=== PATIENT | female | born 1950 | race Caucasian/White ===

== ENCOUNTER 2022-09-09 11:34 | Outpatient (CLI) | payer MEDICARE, SELFPAY ==
[2022-09-09 12:38] LABS: Chloride* 101 mmol/L (96-114); Sodium* 139 mmol/L (135-149)
[2022-09-09 12:39] LABS: Potassium* 3.5 mmol/L (3.6-5.1)
[2022-09-09 12:41] LABS: Carbon Dioxide* 33 mmol/L (20-32); Cholesterol* 150 mg/dL (90-199); Creatinine* 1.5 mg/dL (0.5-1.5); Estimated Glomerular Filt Rate 37 ml/min
[2022-09-09 12:42] LABS: Blood Urea Nitrogen* 30 mg/dL (7-30); Glucose* 95 mg/dL (60-115); HDL Cholesterol* 76 mg/dL (>=50); LDL Cholesterol Calculated 50 mg/dL (<100); Triglycerides* 119 mg/dL (40-149)
[2022-09-09 12:49] LABS: Vitamin D 25 Hydroxy* 46 ng/mL (30-80)
[2022-09-10 12:05] LABS: Free T4 Free Thyroxine* 1.35 ng/dL (0.70-1.85)
== END 2022-09-09 11:35 | disposition home or self-care (01) ==
PROVIDERS: PCP Internal Medicine; Visit Provider Internal Medicine
DX: M85.80 Other specified disorders of bone density and structure, unspecified site (principal); E03.9 Hypothyroidism, unspecified; I10 Essential (primary) hypertension; E78.5 Hyperlipidemia, unspecified
CPT/HCPCS: 80048; 80061; 82306; 84439; 84443

== ENCOUNTER 2023-02-12 12:39 | Outpatient (CLI) | payer MEDICARE, BC, SELFPAY ==
--- NOTE | 2023-02-12 13:00 | CRLHL7_ITS ---
For Patients: As a result of the Cures Act, medical imaging exams and procedure reports are released immediately into your electronic medical record. You may view this report before your referring provider. If you have questions, please contact your health care provider. DXA BONE MINERAL DENSITY STUDY, 02/12/2023 Reason for exam: osteopenia. History of breast cancer. Current height (inches): 66.0 Weight (lbs.): 197.0 Menopause age: 55 Ethnicity: White 1. Have you had a previous hip or vertebral fracture? No. 2. Have you had any fractures during your adult life which did not result from significant trauma (e.g., auto accident)? No. 3. Did either of your parents have a hip fracture? No. 4. Do you smoke? No. 5. Have you ever taken Glucocorticoids? No. 6. Do you have rheumatoid arthritis? No. 7. Do you have secondary osteoporosis? No. 8. Do you drink 3 or more alcoholic drinks per day? No. 9. Are you being treated for osteoporosis? No. 10. Have you ever taken any of the following medications: Actonel, Evista, Fosamax, Miacalcin, Reclast, Boniva, Forteo, HRT (i.e., estrogen/hormone therapy), Protelos, Prolia, Vitamin D, Calcium, other ??? please specify. ANSWER: Yes; vitamin D, calcium. 11. Do you have any of the following medical conditions: Anorexia or bulimia, asthma or emphysema, end stage renal disease, hyperparathyroidism, any seizure disorders, cancer, inflammatory bowel diseases, hysterectomy, other ??? please specify. ANSWER: Yes; cancer. 12. What was your maximum height (inches)? 66. 13. Do you perform weightbearing exercise regularly? No. 14. Do you regularly consume dairy products? No. 15. Do you drink caffeinated beverages? Yes. 16. At what age did your period start? 14 17. Are you premenopausal? No. 18. How many full-term pregnancies have you had? 3. 19. Have you ever missed your period for more than 6 months in a row (not including or menopause)? No. TECHNIQUE: Bone mineral density study was performed using the [employer]. FINDINGS: The results of the study expressed as bone mineral density (BMD) are as follows: Lumbar Spine L2 to L4: BMD: 0.955 g/cm2. T-score: -1.1. Z-score: 1.2. Neck Left: BMD: 0.667 g/cm2. T-score: -1.6. Z-score: 0.3. Right: BMD: 0.655 g/cm2. T-score: -1.7. Z-score: 0.2. Total Left: BMD: 0.897 g/cm2. T-score: -0.4. Z-score: 1.3. Right: BMD: 0.876 g/cm2. T-score: -0.5. Z-score: 1.1. IMPRESSION: Osteopenia. COMPARISON: Compared with scan of 06/07/2018, the bone mineral density has not changed at the spine and increased by 2.5% at the hip. Compared with scan of 07/20/2014, the bone mineral density has increased by 2.7% at the spine and increased by 6.9% at the hip. *Comparison exams done prior to 04/2020 were performed on different unit, [employer]. FRAX 10-year Fracture Risk Major Osteoporotic Fracture: 11% Hip Fracture: 2.0% Reported Risk Factors: [place] () Neck BMD = 0.655, BMI = 31.8 TORREY FORTE M.D. Diagnostic Radiologist [email or web address] Transcribed: 2:[address]/Dictated by: Torrey Forte MD @ 02/12/2023 1:29:00 PM (Electronically Signed)
--- NOTE | 2023-02-12 13:40 | CRLHL7_ITS ---
For Patients: As a result of the Century Cures Act, medical imaging exams and procedure reports are released immediately into your electronic medical record. You may view this report before your referring provider. If you have questions, please contact your health care provider. BILATERAL SCREENING MAMMOGRAM WITH COMPUTER-AIDED DETECTION AND TOMOSYNTHESIS TECHNIQUE: CC and MLO views were obtained. These mammographic images have been obtained using full-field digital technique. These mammographic images were interpreted with the benefit of computer-aided detection. Breast tomosynthesis was used in this interpretation. COMPARISON FILM: 08/31/20, 06/29/19, 12/29/18 left diagnostic. FINDINGS: There are scattered areas of fibroglandular density. IMPRESSION: There is no radiographic evidence for malignancy. ASSESSMENT: BI-RADS Category 1: Negative RECOMMENDATION: Routine screening mammogram in 1 year. A lay language report of this examination will be provided to the patient. TORREY FORTE M.D. Diagnostic Radiologist [email or web address] HIRO/juan a Transcribed: 02/13/2023, 1:[address]/Dictated by: Torrey Forte MD @ 02/13/2023 8:36:00 AM (Electronically Signed)
== END 2023-02-12 12:40 | disposition home or self-care (01) ==
LOC: RAD 12:39
PROVIDERS: PCP Internal Medicine; Visit Provider Internal Medicine
DX: Z12.31 Encounter for screening mammogram for malignant neoplasm of breast (principal); M85.80 Other specified disorders of bone density and structure, unspecified site; M85.89 Other specified disorders of bone density and structure, multiple sites; Z78.0 Asymptomatic menopausal state; Z85.3 Personal history of malignant neoplasm of breast
CPT/HCPCS: 77063; 77067; 77080

== ENCOUNTER 2023-10-20 11:38 | Outpatient (CLI) | payer MEDICARE, BC, SELFPAY | END 2023-10-20 11:39 | disposition home or self-care (01) | PROVIDERS: PCP Internal Medicine; Visit Provider Internal Medicine | DX: I10 Essential (primary) hypertension (principal); E03.9 Hypothyroidism, unspecified; M10.9 Gout, unspecified; E78.5 Hyperlipidemia, unspecified; Z90.5 Acquired absence of kidney; M85.80 Other specified disorders of bone density and structure, unspecified site | CPT/HCPCS: 80048; 80061; 82043; 82306; 82570; 84443; 84550 ==

== ENCOUNTER 2023-12-30 08:55 | Outpatient (CLI) | payer MEDICARE, BC, SELFPAY ==
--- OUTSIDE RECORDS SUMMARY | 2023-12-30 08:58 | XMS_ITS | Encounter Summary ---
Author Name Unknown Organization [facility] Address [address] [place] [address] Care Team Providers Care Junior Copywriter Name Role Phone Unavailable Primary Care Provider Unavailabl e Reason for Referral * Physical Therapy (Routine) - Authorized Specialty Diagnoses / Procedures Referred By Amyac t Referred To Contact Diagnoses Strain Muscles And Tendons Rotator Cuff Right Shoulder Initial Procedures PT Ongoing treatment [address] [phone] [facility] Region Referral ID Status Reason Start Date Expiration Date V isits Requested Visits Authorized [id number] Authorized 11/11/2023 11/10/2024 99 99 CARRIER Reason for Visit * Appointment Request (Routine) - Closed Specialty Diagnoses / Procedures Referred By Contac t Referred To Contact Physical Therapy Referral ID Status Reason Start Date Expiration Date Visits Re quested Visits Authorized [id number] Closed 11/04/2023 11/03/2024 1 1 Encounter Details Date Type Department Care Team (Latest Contact Info) Description 11/11/2023 8:45 AM COAL CARRIER Comprehensive Visit Department of Rehabilitation Services in [address] [phone] Mark Moon M.D., Ph.D. [address] [place] [phone] Mague Bean P.T. Strain Muscles And Tendons Rotator Cuff Right Shoulder Initial (Primary Dx) Social History Tobacco Use Types Packs/Day Years Used Date Smoking Tobacco: Former Cigarettes 1 40 Q uit: 07/25/2014 Smokeless Tobacco: Never Alcohol Use Standard Drinks/Week Comments Not Currently 0 (1 standard drink = 0.6 oz pur e alcohol) Humiliation, Afraid, Rape, and Kick questionnair e Answer Date Recorded Within the last year, have y ou been afraid of your partner or ex-partner? No 10/01/2022 Within the last year, have y ou been humiliated or emotionally abused in other ways by your partner or ex-partner? No Within the last year, have y ou been kicked, hit, slapped, or otherwise physically hurt by your partner or ex-partner? No 10/01/2022 Within the last year, have y ou been raped or forced to have any kind of sexual activity by your partner or ex-partner? No 10/01/2022 Social Connection and Isolat ion Panel [NHANES] Answer Date Recorded In a typical week, how many times do you talk on the phone with family, friends, or neighbors? More than three times a week 10/01/2022 How often do you get togethe r with friends or relatives? Once a week 10/01/2022 How often do you attend chur or sikhism services? More than 4 times per year 10/01/2022 Do you belong to any clubs o r organizations such as christianity groups, unions, fraternal or athletic groups, or school groups? No 10/01/2022 Attends Club or Organization Meetings Not on kenisha e 10/01/2022 Are you , , di vorced, , never , or living with a partner? 10/01/2022 AUDIT-C Answer Date Recorded Q1: How often do you have a drink containing alc ohol? 2-4 times a month 10/01/2022 Q2: How many drinks containi ng alcohol do you have on a typical day when you are drinking? 1 or 2 10/01/2022 Q3: How often do you have si x or more drinks on one occasion? Less than monthly 10/01/2022 Overall Financial Resource Strain (CARDIA) Answe r Date Recorded How hard is it for you to pa y for the very basics like food, housing, medical care, and heating? Not very hard 10/01/2022 [facility] Occupat ional Health - Occupational Stress Questionnaire Answer Date Recorded Do you feel stress - tense, restless, nervous, or anxious, or unable to sleep at night because your mind is troubled all the time - these days? Rather much 10/01/2022 Exercise Vital Sign Answer Date Recorde d On average, how many days pe r week do you engage in moderate to strenuous exercise (like a brisk walk)? 3 days 10/01/2022 On average, how many minutes do you engage in exercise at this level? 60 min 10/01/2022 Hunger Vital Sign Answer Date Recorded Within the past 12 months, y ou worried that your food would run out before you got the money to buy more. Never true 10/01/20 Within the past 12 months, t he food you bought just didn't last and you didn't have money to get more. Never true 10/01/2022 PRAPARE - Transportation Answer Date Re corded In the past 12 months, has l ack of transportation kept you from medical appointments or from getting medications? No 07/2022 In the past 12 months, has l ack of transportation kept you from meetings, work, or from getting things needed for daily living? No 10/01/2022 Housing Stability Vital Sign Answer Arturo e Recorded In the last 12 months, was t here a time when you were not able to pay the mortgage or rent on time? No 10/01/2022 In the last 12 months, how many places have you lived? 2 10/01/2022 In the last 12 months, was t here a time when you did not have a steady place to sleep or slept in a correction (including now)? No 10/01/2022 Nutrition Answer Date Recorded Nutrition: EVOO Fat Source Yes 10/01 On average, how many serving s of fruits and vegetables do you eat per day (serving size is equal to 1 cup or approximately the size of a tennis ball)? 2-3 10/01/2022 Dental Answer Date Recorded Dental: Regular Dentist Yes 10/01/20 Employment Answer Date Recorded Employment status Retired 10/01/2022 Education Answer Date Recorded What is the highest level of school you have completed or the highest degree you have received? 12th grade 12/03/2020 Sex and Gender Information Value Date Recorded Sex Assigned at Female 08/27/2021 3:22 PM CDT Gender Identity Female 11/27/2020 5:13 PM COAL CARRIER Sexual Orientation Straight 08/27/2021 3: 22 PM CDT documented as of this encounter Consult Notes * Mague Bean P.T. - 11/11/2023 8:45 AM CST Physical Therapy Outpatient Evaluation/Treatment By co-signing this note, the provider certifies the therapy being provided to this patient is reasonable and necessary for the diagnosis or treatment of this patient. PCP: Rosa Yo MD SUBJECTIVE Patient's Name: Gardenia Cisneros Referring Provider: No ref. provider found Visit Diagnosis: 1. 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 OTHER CONVERTED SHX (SEE COMMENT) N/A 01/22/2012 1. Operative hysteroscopy. >2. Polypectomy. TONSILLECTOMY N/A Tonsillectomy Patient presents to outpatient physical therapy for evaluation of symptoms including: Rotator Cuff Tendonitis Overall patient reports status is worsening . History of Present Illness:Patient states she has had a slow onset of irritation to her right shoulder. reports she has been seeing her chiropractor for some rib adjustments and he had given her a few things to do with her right shoulder but it wasn't improving so she had an x-ray and obatined an order from her PCP for right rotator cuff teninitis. Aggravating Factors: lifting and laying on right shoulder Relieving Factors: rest, ice Previous Treatments: Dual Rate Supervisor Prior Function/Occupational Profile: pt is retired Family/Caregiver Present: No Patient goals:Be able to do things around the house without right UE pain. Patient Comments: pt states she has used cold packs and that does seem to reduce her pain somewhat OBJECTIVE REVIEW OF SYSTEMS PHYSICAL EXAM Pain: 5/10 with palpation Orthopedic Physical Examination Shoulder examination Range of motion Right shoulder normal active range of motion, external rotation 0??: with pain noted on active motion Left shoulder normal active range of motion, -- Additional active ROM detail: Slight end range pain right shoulder in ER and IR behind back Strength exam Right Planes of shoulder motion - forward flexion: 4, aBduction: 4, external rotation at 0??: 3, internalrotation at 0??: 4 Left normal strength exam Special shoulder tests Right Positive findings include: crossover aDduction. Right elbow flexion and extension strength: 5/5 Palpation: tenderness noted along lateral rotator cuff tendons and acromio- clavicular joint TREATMENT Treatment today consisted of: Therapeutic Exercise: Codman's swings all directions ER with 0.5 wt x 25 reps IR with band x 25 reps Sidelying shoulder abd x 25 Scap sets daily 20 reps Standing scaption x 30 reps no weight Standing flexion x 30 reps no weight *tactile cues for all above exs with reminders not to shrug shoulders up and lessen UT involvement Home Exercise Program/Education: above routine daily Assessment Clinical Impression: Patient presents to physical therapy with signs and symptoms consistent with rotator cuff tendonitis. Impairments: limited strength and painful end range of motion Functional deficits: limited ability to tolerate ADLs and housework due to pain Rehab Potential: Patient has Good potential to achieve established physical therapy goals within the time frame outlined below, provided active participation in the physical therapy treatment plan and home program. Comorbid Conditions: None Personal Factors: Age Clinical Presentation: Stable Examination elements: 1-2 Clinical Decision Making: Low complexity clinical decision making Functional Goals and Timeframes: PT Outpatient Goals PT Goal #1: Patient will have 5/5 strength in right UE / shoulder without pain. PT Goal #1 Date: 01/21/24 PT Goal #2: Patient will have full right shoulder AROM without end range pain in any motions. PT Goal #2 Date: 01/21/24 PT Goal #3: Patient will be I in [facility] for shoulder RTC strengthening. PT Goal #3 Date: 01/21/24 Plan Patient was educated regarding evaluative findings, diagnosis, prognosis, potential risks and benefits of rehabilitation interventions. A collaborative effort was used to establish goals and plan of care. The patient was informed of the right to make decisions regarding care, including refusal of examination or treatment or selection of services from another provider if desired. The treatment plan may be progressed or modified based upon the patient's response to treatment. Physical Therapy Attestation Statement: Patient agrees with the plan of care and goals. Treatment Plan: Start of Plan of Care: 11/11/2023 PT Next Certification Date: 02/09/24 Number of Visits:8 visits PT Duration: PT Frequency: Treatment interventions may include: Treatment/Interventions: Therapeutic exercise, Therapeutic modalities as needed, Therapeutic functional activity, Neuromuscular re-education, Manual therapy Plan for next session: con't with rotator cuff strengthening within pain tolerance Time Spent with Patient Evaluations PT Eval - Low Complexity: 25 min Therapeutic Interventions Therapeutic Exercise (min): 20 min Time Tracking Total Timed Units (min): 20 min Total Treatment Time (min): 45 min CARRIER documented in this encounter Plan of Treatment Upcoming Encounters Date Type Department Care Team (Late st Contact Info) Description 01/05/2024 12:30 PM COAL CARRIER Clinical Support Department of Rehabilitation Services in [address] [phone] Carlos Enrique Crawford M.D. [address] [place] [phone] Mague Bean P.T. documented as of this encounter Visit Diagnoses Diagnosis Strain Muscles And Tendons Rotator Cuff Right Shoulder Initial- Primary documented in this encounter
--- OUTSIDE RECORDS SUMMARY | 2023-12-30 08:58 | XMS_ITS | Encounter Summary ---
Author Name Unknown Organization [facility] Address [address] [place] [address] Care Team Providers Care Natural Resources Technician Name Role Phone Unavailable Primary Care Provider Unavailabl e Reason for Visit * Physical Therapy (Routine) - Authorized Specialty Diagnoses / Procedures Referred By Iman t Referred To Contact Diagnoses Strain Muscles And Tendons Rotator Cuff Right Shoulder Initial Procedures PT Ongoing treatment [facility] [address] [phone] [facility] Region Referral ID Status Reason Start Date Expiration Date V isits Requested Visits Authorized [id number] Authorized 11/11/2023 11/10/2024 99 99 Encounter Details Date Type Department Care Team (Late st Contact Info) Description 12/14/2023 11:15 AM WIRELESS MANAGER Clinical Support Department of Rehabilitation Services in [address] [phone] Carlos Enrique Crawford M.D. [address] [place] [phone] Mague Bean P.T. Strain Muscles And Tendons Rotator Cuff Right Shoulder Initial Social History Tobacco Use Types Packs/Day Years [...] week 10/01/2022 How often do you attend [facility] or scientologist services? More than 4 times per year 10/01/2022 Do you belong to any clubs o r organizations such as jain groups, unions, fraternal or athletic groups, or [...] care, and heating? Not very hard 10/01/2022 [facility] [place] [facility] Occupat ional Health - Occupational Stress [...] money to buy more. Never true 10/01/20 22 Within the past 12 months, t he [...] place to sleep or slept in a intermediate (including now)? No 10/01/2022 Nutrition Answer Date [...] CDT Gender Identity Female 11/27/2020 5:13 PM WIRELESS MANAGER Sexual Orientation Straight 08/27/2021 3: 22 PM CDT documented as of this encounter Progress Notes * Mague Bean P.T. - 12/14/2023 11:15 AM CST Physical Therapy Outpatient Treatment Note SUBJECTIVE Patient's Name: Garednia Cisneros Referring Provider: No ref. provider found Visit Diagnosis: 1. Strain Muscles And Tendons Rotator Cuff Right Shoulder Initial Payor: MEDICARE / Plan: MEDICARE A AND B / Product Type: Medicare / PT Next Certification Date: 02/09/24 Epic Visit Count: 4 Patient comments: pt states she seemed to have a flare up of her right shoulder with the rotation exercise so she had to take 3 day off from her exercises. Pt reports an overall improvement of 30% since starting PT. OBJECTIVE Pain: 2/10 on average Ortho Exam Posterior RTC tendons continue to be sore TREATMENT Treatment today consisted of: Manual Therapy: pt supine: CFM to right RTC tendons and passive right pec stretch applied Right shoulder joint oscillations and gentle shoulder inferior mobilizations grades I and II for pain reduction Therapeutic Exercise: Fit with Friends upper body ergometer: forwards and backwards 5 min each x 10 min total Codman's swings all directions ER with 1 lb wt x 30 reps Sidelying shoulder abd x 25 Scap sets daily 20 reps Standing scaption x 30 reps -- 1 lb wt Standing flexion x 30 reps -- 1 lb wt IR with orange band x 30 (progress to green at home) Sidelying flexion to 90 degrees x 30 Rotation thoracic on side x 10 each side T-band arms extended rows x 20 reps (blue band) - Right shoulder only due to pain with left T-band rows with arms in mid position x 20 (blue band given) Home Exercise Program/Education: above daily- edu to use cold pack 1-2 times daily Patient reports good HEP compliance. Assessment Clinical Impression: Patient presents to physical therapy with signs and symptoms consistent with rotator cuff tendonitis. Impairments: limited strength and painful end range of motion Functional deficits: limited ability to tolerate ADLs and housework due to pain Functional Goals and Timeframes: PT Goal #1: Patient will have 5/5 strength in right UE / shoulder without pain. PT Goal #1 Date: 01/21/24 PT Goal #2: Patient will have full right shoulder AROM without end range pain in any motions. PT Goal #2 Date: 01/21/24 PT Goal #3: Patient will be I in [facility] for shoulder RTC strengthening. PT Goal #3 Date: 01/21/24 No data recorded Plan Plan for next session: con't with rotator cuff strengthening within pain tolerance and con't manualprn as well *pt has a f/u with her MD in 2 weeks and will inquire about any further treatments she can trail for her shoulder *3 week f/u planned and pt to continue with HEP during that time Time Spent with Patient Therapeutic Interventions Manual Therapy (min): 20 min Therapeutic Exercise (min): 25 min Time Tracking Total Timed Units (min): 45 min Total Treatment Time (min): 45 min LESS MANAGER documented in this encounter Plan of Treatment Upcoming Encounters Date Type Department Care Team (Late st Contact Info) Description 01/05/2024 12:30 PM WIRELESS MANAGER Clinical Support Department of Rehabilitation Services in [address] [phone] Carlos Enrique Crawford M.D. [facility] [place] [phone] Mague Bean P.T. documented as of this encounter Visit Diagnoses Diagnosis Strain Muscles And Tendons Rotator Cuff Right Shoulder Initial documented in this encounter
--- OUTSIDE RECORDS SUMMARY | 2023-12-30 08:58 | XMS_ITS ---
Author Name Unknown Organization [facility] Address [address] [place] [address] Care Team Providers Care Community Health Advocate Name Role Phone Unavailable Unavailable Unavailable Surgery Details Not on file Complications Check Surgery Details section. Procedure Estimated Blood Loss Check Surgery Details section. Procedure Findings Check Surgery Details section. Procedure Specimens Taken Check Surgery Details section.
--- OUTSIDE RECORDS SUMMARY | 2023-12-30 08:58 | XMS_ITS | Clinical Summary ---
Author Name Unknown Organization [facility] Address [address] [place] [address] Care Team Providers Care Divorce Lawyer Name Role Phone Unavailable Primary Care Provider Unavailabl e Source Comments Patient records contain information from all sites at [facility]. For routine questions regarding patient records, call [phone] during business hours, M-F 8:00 AM - 5:00 PM Central Time. Record requests for emergency care only can be directed to [phone] at any time.[facility] Allergies No known active allergies Medications Medication Sig Dispensed Refills Start Date End Date Status atorvastatin (LIPITOR) 20 mg tablet Take 20 mg by mouth at bedtime. 0 10/13/2016 Active clobetasol (TEMOVATE) 0.05 % cream Apply 1 application topically 2 (two) times a week. Sundays and Wednesdays; Topical use as directed; Lichen Sclerosus 0 10/13/2016 Active hydroCHLOROthiazide (HYDRODIURIL) 25 mg tablet Take 25 mg by mouth daily. 0 10/13/2016 Active levothyroxine (SYNTHROID, LEVOTHROID) 125 mcg tablet Take 125 mcg by mouth every morning before breakfast. 0 12/30/2018 Active calcium carbonate-vitamin D3 1,500 mg (600 mg calcium)-400 unit per tablet Take 1 tablet by mouth daily with breakfast. 0 Active cholecalciferol (VITAMIN D3) 2,000 Unit tablet Take 2,000 Units by mouth daily. 0 Active allopurinol (ZYLOPRIM) 150 mg tablet Take 150 mg by mouth daily. 0 Active calcium carbonate (OS-NAM) 1,250 mg (500 mg calcium) tablet Take 500 mg by mouth daily. 0 10/13/2016 Active probenecid-colchicin e (COLBENEMID) 500-0.5 mg per tablet Take 1 tablet by mouth daily. 0 02/21/2023 Active predniSONE (DELTASONE) 10 mg tablet pack Take by mouth as needed. 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 Buchholtz, Marie F, P.T. Strain Muscles And Tendons Rotator Cuff Right Shoulder Initial 12/03/2023 12:30 PM VISUAL DESIGN LEAD Clinical Support Department of Rehabilitation Services in [address] [phone] Carlos Enrique Crawford M.D. Buchholtz, Marie F P.T. Strain Muscles And Tendons Rotator Cuff Right Shoulder Initial 11/24/2023 2:15 PM VISUAL DESIGN LEAD Clinical Support Department of Rehabilitation Services in [address] [phone] Carlos Enrique Crawford M.D. Buchholtz, Marie F P.T. Strain Muscles And Tendons Rotator Cuff Right Shoulder Initial 11/11/2023 8:45 AM VISUAL DESIGN LEAD Comprehensive Visit Department of Rehabilitation Services in [address] [phone] Mark Moon M.D., Ph.D. Mague Bean, P.T. Strain Muscles And Tendons Rotator Cuff Right Shoulder Initial (Primary Dx) from Last 3 Months Immunizations Name Administration Dates Next Due Influenza, Unspecified 09/14/2015 Td (Adult), adsorbed 06/06/2004 Social History Tobacco Use Types Packs/Day Years Used Date Smoking Tobacco: Former Cigarettes 1 40 Q uit: 07/25/2014 Smokeless Tobacco: Never Tobacco Cessation:Counseling Given: Not Answered Alcohol Use Standard Drinks/Week Comments Not Currently [...] How often do you attend chur or religion services? More than 4 times per year 10/01/2022 Do you belong to any clubs o r organizations such as jainism groups, unions, fraternal or athletic groups, or [...] care, and heating? Not very hard 10/01/2022 [facility] [place] of Occupat ional Health - Occupational Stress [...] place to sleep or slept in a penitentiary (including now)? No 10/01/2022 Nutrition Answer Date [...] CDT Gender Identity Female 11/27/2020 5:13 PM VISUAL DESIGN LEAD Sexual Orientation Straight 08/27/2021 3: 22 PM CDT Last Filed Vital Signs Vital Sign Reading Time Taken Comments Blood Pressure 144/80 09/06/2022 12:32 PM CDT Pulse 58 09/06/2022 12:32 PM CDT Temperature 36.1 ??C (97 ??F) 09/06/2022 12:29 PM CDT Respiratory Rate 16 08/16/2020 3:51 PM CDT Oxygen Saturation 98% 08/16/2020 12:00 PM CDT Inhaled Oxygen Concentration - - Weight 92.7 kg (204 lb 5.9 oz) 09/06/2022 12:29 PM CDT Height 167.6 cm (5' 6) 10/20/2022 8:15 PM VISUAL DESIGN LEAD Body Mass Index 32.27 09/06/2022 12:29 PM CDT Plan of Treatment Upcoming Encounters Date Type Department Care Team (Late st Contact Info) Description 01/05/2024 12:30 PM VISUAL DESIGN LEAD Clinical Support Department of Rehabilitation Services in [address] [phone] Carlos Enrique Crawford M.D. [facility] [place] [phone] Mague Bean, P.TBhakti Health Maintenance Due Date Last Done Comments Bone Density Scan (Osteoporo sis Screen) 1950 CT Colonography 1950 Cologuard 1950 Colonoscopy 1950 Colorectal Cancer Screening 1950 FIT 1950 Hepatitis C Screening 1950 Thyroid Stimulating Hormone (TSH) test for thyroid function 1950 Zoster Vaccines (1 of 2) 2000 Mammogram 09/25/2022 09/25/2021, 07/2020, 06/29/2019, Additional history exists Office Visit for Blood Press ure Check / Re-check 12/07/2022 09/06/2022 COVID-19 Vaccine (3 - 2022-2 4 season) 2023 10/01/2021, 09/03/2021 Influenza Vaccine (#1) 2023 , 08/26/2021, 11/08/2019, Additional history exists Depression Screening (Annual PHQ-2) 11/23/2023 Fall Risk Screen (Annual) 11/23/2023 Creatinine Level (Kidney Fun ction Test) 05/04/2024 05/04/2023, 09/22/2022, 08/28/2021, Additional history exists Lung Cancer Screening 05/04/2024 05/04/2023, 022 Potassium Level 05/04/2024 05/04/2023, 08/25, 08/28/2021, Additional history exists Sodium Level 05/04/2024 05/04/2023, 08/25, 08/28/2021, Additional history exists Fasting Glucose for Diabetes Screening 05/04/2026 05/04/2023, 09/22/2022, 08/28/2021, Additional history exists DTaP,Tdap,and Td Vaccines (3 - Td or Tdap) 05/19/2033 05/19/2023, 12/16/2013, 06/06/2004 Pneumococcal vaccine (65+ years) Completed 04/01/20, 03/14/2016 Medical Devices Implanted Type Area Cooler Tender Device Identifier Shelf Expiration Date Model / Serial / Lot Clp Hmol Plmr Lg - [id number] Implanted:Qt y: 1 on 08/14/2020 by Nestor Hand M.D. at [facility] Hardware e.g. pins/screws /rods Right: Abdomen Teleflex [employer] [id number] 09/19/2024 [id number] / / [id number] Advance Directives For more information, please contact: [phone] Latest Code Status on File Code Status Date Activated Date Inactivated Comments Full Code 08/14/2020 6:07 PM 08/16/2020 6:43 PM Question Answer Comments Full Code: Discussed
--- OUTSIDE RECORDS SUMMARY | 2023-12-30 08:58 | XMS_ITS | Encounter Summary ---
Author Name Unknown Organization [facility] Address [address] [place] [address] Care Team Providers Care Resident Manager Name Role Phone Unavailable Primary Care Provider Unavailabl e Encounter Details Date Type Department Care Team (Latest Contact Info) Description 05/04/2023 6:30 AM CDT - 05/04/2023 6:54 AM CDT Hospital Encounter Department of Laboratory Medicine and Pathology, [facility] in [place], [place] [address] [place] [phone] Slava Velazquez M.D. [address] [place] [phone] Carcinoma Renal Cell Right (HCC) Discharge Disposition: Home or Self Care Social History Tobacco Use Types Packs/Day Years [...] week 10/01/2022 How often do you attend [facility] or yazidism services? More than 4 times per year 10/01/2022 Do you belong to any clubs o r organizations such as yarsanism groups, unions, fraternal or athletic groups, or [...] care, and heating? Not very hard 10/01/2022 [facility] of Occupat ional Health - Occupational Stress [...] place to sleep or slept in a chcf (including now)? No 10/01/2022 Nutrition Answer Date [...] CDT Gender Identity Female 11/27/2020 5:13 PM TOBACCO EDUCATOR Sexual Orientation Straight 08/27/2021 3: 22 PM CDT documented as of this encounter Medications at Time of Discharge Medication Sig Dispensed Refills Start Date End Date allopurinol (ZYLOPRIM) 150 mg tablet Take 150 mg by mouth daily. 0 atorvastatin (LIPITOR) 20 mg tablet Take 20 mg by mouth at bedtime. 0 10/13/2016 calcium carbonate (OS-NAM) 1,250 mg (500 mg calcium) tablet Take 500 mg by mouth daily. 0 10/13/2016 calcium carbonate-vitamin D3 1,500 mg (600 mg calcium)-400 unit per tablet Take 1 tablet by mouth daily with breakfast. 0 cholecalciferol (VITAMIN D3) 2,000 Unit tablet Take 2,000 Units by mouth daily. 0 clobetasol (TEMOVATE) 0.05 % cream Apply 1 application topically 2 (two) times a week. Sundays and Wednesdays; Topical use as directed; Lichen Sclerosus 0 10/13/2016 hydroCHLOROthiazide (HYDRODIURIL) 25 mg tablet Take 25 mg by mouth daily. 0 10/13/2016 levothyroxine (SYNTHROID, LEVOTHROID) 125 mcg tablet Take 125 mcg by mouth every morning before breakfast. 0 12/30/2018 predniSONE (DELTASONE) 10 mg tablet pack Take by mouth as needed. 0 12/25/2022 probenecid-colchicine (COLBENEMID) 500-0.5 mg per tablet Take 1 tablet by mouth daily. 0 02/21/2023 documented as of this encounter Plan of Treatment Upcoming Encounters Date Type Department Care Team (Late st Contact Info) Description 01/05/2024 12:30 PM TOBACCO EDUCATOR Clinical Support Department of Rehabilitation Services in [address] [phone] Carlos Enrique Crawford M.D. [address] [place] [phone] Mague Bean P.T. documented as of this encounter Procedures Procedure Name Priority Date/Time Associated Diagnosis Comments CBC WITHOUT DIFFERENTIAL, B Routine 05/04/2023 6:45 AM CDT Carcinoma Renal Cell Right (HCC) BASIC METABOLIC PANEL, S/P Routine 05/04/2023 6:45 AM CDT Carcinoma Renal Cell Right (HCC) documented in this encounter Results * CBC without Differential (05/04/2023 6:45 AM CDT) Hemoglobin 12.8 11.6 - 15.0 g/dL 05/04/2023 7:06 AM CDT DTL Hematocrit 39.2 35.5 - 44.9 % 05/04/2023 7:06 AM CDT DTL Erythrocytes 4.30 3.92 - 5.13 x10(12)/L 05/04/2023 7:06 AM CDT DTL MCV 91.2 78.2 - 97.9 fL 05/04/2023 7:06 AM CDT DTL RBC Distrib Width 14.4 12.2 - 16.1 % 05/04/2023 7:06 AM CDT DTL Platelet Count 218 157 - 371 x10(9)/L 05/04/2023 7:06 AM CDT DTL Leukocytes 4.8 3.4 - 9.6 x10(9)/L 05/04/2023 7:06 AM CDT DTL Blood (Blood, Venous) 05/04/2023 6:45 AM CDT 05/04/2023 7:00 AM CDT Slava Velazquez M.D. LAB BLOOD ADD-ON [facility] [address] [place] [address] * (ABNORMAL) Basic Metabolic Panel (05/04/2023 6:45 AM CDT) Potassium, S 4.5 3.6 - 5.2 mmol/L 05/04/2023 7:31 AM CDT DTL Sodium, S 145 135 - 145 mmol/L 05/04/2023 7:31 AM CDT DTL Chloride, S 103 98 - 107 mmol/L 05/04/2023 7:31 AM CDT DTL Bicarbonate, S 29 22 - 29 mmol/L 05/04/2023 7:31 AM CDT DTL Anion Gap 13 7 - 15 05/04/2023 7:31 AM CDT DTL BUN (Blood Urea Nitrogen), S 27(H) 6 - 21 mg/dL 05/04/2023 7:31 AM CDT DTL Creatinine 1.45(H) 0.59 - 1.04 mg/dL 05/04/2023 7:31 AM CDT DTL Estimated GFR (eGFR) 38(L) >=60 mL/min/BSA 05/04/2023 7:31 AM CDT DTL Comment: Estimated GFR calculated using the 2020 CKD_EPI creatinine equation. Calcium, Total, S 9.9 8.8 - 10.2 mg/dL 05/04/2023 7:31 AM CDT DTL Glucose, S 127 70 - 140 mg/dL 05/04/2023 7:31 AM CDT DTL Blood (Blood, Venous) 05/04/2023 6:45 AM CDT 05/04/2023 7:14 AM CDT Slava Velazquez M.D. LAB BLOOD ADD-ON [facility] [address] [place] [address], [facility] [address] [place] [address] documented in this encounter Visit Diagnoses Diagnosis Carcinoma Renal Cell Right (HCC) documented in this encounter
--- OUTSIDE RECORDS SUMMARY | 2023-12-30 08:58 | XMS_ITS | Encounter Summary ---
Author Name Unknown Organization [facility] Address [address] [place] [address] Care Team Providers Care Outpatient Dietitian Name Role Phone Unavailable Primary Care Provider Unavailabl e Reason for Visit * Physical Therapy (Routine) - Authorized Specialty Diagnoses / Procedures Referred By Iman t Referred To Contact Diagnoses Strain Muscles And Tendons Rotator Cuff Right Shoulder Initial Procedures PT Ongoing treatment [facility] [address] [place] [phone] [facility] Region Referral ID Status Reason Start Date Expiration Date V isits Requested Visits Authorized [id number] Authorized 11/11/2023 11/10/2024 99 [phone] Encounter Details Date Type Department Care Team (Late st Contact Info) Description 11/24/2023 2:15 PM OFFICE SUPERVISOR Clinical Support Department of Rehabilitation Services in [address] [phone] Carlos Enrique Crawford M.D. [address] [place] [phone] Mague Bean P.T. Strain Muscles And Tendons [...] week 10/01/2022 How often do you attend [facility] or mandaeism services? More than 4 times per year 10/01/2022 Do you belong to any clubs o r organizations such as mandaeism groups, unions, fraternal or athletic groups, or [...] care, and heating? Not very hard 10/01/2022 [facility] [place] of Occupat ional Health - Occupational Stress [...] CDT Gender Identity Female 11/27/2020 5:13 PM OFFICE SUPERVISOR Sexual Orientation Straight 08/27/2021 3: 22 PM CDT documented as of this encounter Progress Notes * Mague Bean P.T. - 11/24/2023 2:15 PM CST Physical Therapy Outpatient Treatment Note SUBJECTIVE Patient's Name: Gardenia Cisneros Referring Provider: No ref. provider found Visit Diagnosis: 1. Strain Muscles And Tendons Rotator Cuff Right Shoulder Initial Payor: MEDICARE / Plan: MEDICARE A AND B / Product Type: Medicare / PT Next Certification Date: 02/09/24 Epic Visit Count: 2 Patient comments: pt states the exercises are helping already, states she feels tired from them butno increased soreness. Was able to do some house work with less shoulder soreness already too. Coles reports some burning with the arm swing exs. OBJECTIVE Pain: 2/10 on average Ortho Exam Scar below shoulder from biopsy / removal of skin cancer healed well no scabs however very tender to palpation RTC tendons continue to be sore TREATMENT Treatment today consisted of: Manual Therapy: pt seated: Scar mobilizations to right shoulder scar CFM to right RTC tendons Therapeutic Exercise: Codman's swings all directions ER with 0.5 wt x 30 reps Sidelying shoulder abd x 25 Scap sets daily 20 reps Standing scaption x 30 reps -- added 0.5 wt Standing flexion x 30 reps -- added 0.5 wt NEW HEP: IR with orange band x 30 Sidelying flexion to 90 degrees x 30 Rotation thoracic on side x 10 each side Home Exercise Program/Education: above daily Patient reports good HEP compliance. Assessment [...] pain tolerance and con't manualprn as well Time Spent with Patient Therapeutic Interventions Manual Therapy (min): 10 min Therapeutic Exercise (min): 25 min Time Tracking Total Timed Units (min): 35 min Total Treatment Time (min): 35 min CE SUPERVISOR documented in this encounter Plan of Treatment Upcoming Encounters Date Type Department Care Team (Late st Contact Info) Description 01/05/2024 12:30 PM OFFICE SUPERVISOR Clinical Support Department of Rehabilitation Services in [address] [phone] Carlos Enrique Crawford M.D. [address] [place] [phone] Mague Bean P.T. documented as of this encounter Visit Diagnoses Diagnosis Strain Muscles And Tendons Rotator Cuff Right Shoulder Initial documented in this encounter
--- OUTSIDE RECORDS SUMMARY | 2023-12-30 08:58 | XMS_ITS | Encounter Summary ---
Author Name Unknown Organization [facility] Address [address] [place] [address] Care Team Providers Care Facing Grinder Name Role Phone Unavailable Primary Care Provider Unavailabl e Reason for Visit * Physical Therapy (Routine) - Authorized Specialty Diagnoses / Procedures Referred By Iman t Referred To Contact Diagnoses Strain Muscles And Tendons Rotator Cuff Right Shoulder Initial Procedures PT Ongoing treatment [facility] [address] [place] [phone] [facility] Region Referral ID Status Reason Start Date Expiration Date V isits Requested Visits Authorized [id number] Authorized 11/11/2023 11/10/2024 99 [phone] Encounter Details Date Type Department Care Team (Late st Contact Info) Description 12/03/2023 12:30 PM ELECTORATE OFFICER Clinical Support Department of Rehabilitation Services in [address] [phone] Carlos Enrique Crawford M.D. [address] [place] [phone] Mague Bean P.T. Strain Muscles And Tendons [...] week 10/01/2022 How often do you attend [facility] or mormonism services? More than 4 times per year 10/01/2022 Do you belong to any clubs o r organizations such as bahai groups, unions, fraternal or athletic groups, or [...] care, and heating? Not very hard 10/01/2022 [facility] of Occupat ional Health - Occupational Stress [...] place to sleep or slept in a [facility] (including now)? No 10/01/2022 Nutrition Answer Date [...] CDT Gender Identity Female 11/27/2020 5:13 PM ELECTORATE OFFICER Sexual Orientation Straight 08/27/2021 3: 22 PM CDT documented as of this encounter Progress Notes * Mague Bean P.T. - 12/03/2023 12:30 PM CST Physical Therapy Outpatient Treatment Note SUBJECTIVE Patient's Name: Gardenia Cisneros Referring Provider: No ref. provider found Visit Diagnosis: 1. Strain Muscles And Tendons Rotator Cuff Right Shoulder Initial Payor: MEDICARE / Plan: MEDICARE A AND B / Product Type: Medicare / PT Next Certification Date: 02/09/24 Epic Visit Count: 3 Patient comments: pt states the exercises are [...] tendons and passive right pec stretch applied Therapeutic Exercise: Exanet upper body ergometer: forwards x 6 min Codman's swings all directions ER with 0.5 wt x 30 reps -- increased 1 lb today for progression Sidelying shoulder abd x 25 Scap sets daily 20 reps Standing scaption x 30 reps -- increased to 1 lb wt Standing flexion x 30 reps -- increased to 1 lb wt IR with orange band x 30 Sidelying flexion to 90 degrees x 30 Rotation thoracic on side x 10 each side NEW HEP: T-band arms extended rows x 20 reps - tactile cues to lessen upper trap muscle activation during needed Home Exercise Program/Education: above daily Patient reports [...] with Patient Therapeutic Interventions Manual Therapy (min): 15 min Therapeutic Exercise (min): 30 min Time Tracking Total Timed Units (min): 45 min Total Treatment Time (min): 45 min TORATE OFFICER documented in this encounter Plan of Treatment Upcoming Encounters Date Type Department Care Team (Late st Contact Info) Description 01/05/2024 12:30 PM ELECTORATE OFFICER Clinical Support Department of Rehabilitation Services in [address] [phone] Carlos Enrique Crawford M.D. [address] [place] [phone] Mague Bean P.Lito. documented as of this encounter Visit Diagnoses Diagnosis Strain Muscles And Tendons Rotator Cuff Right Shoulder Initial documented in this encounter
--- OUTSIDE RECORDS SUMMARY | 2023-12-30 08:58 | XMS_ITS | Referral Summary ---
Author Name Unknown Organization [facility] Address [address] [place] [address] Care Team Providers Care Authorization Manager Name Role Phone Unavailable Primary Care Provider Unavailabl e Source Comments Patient records contain information from all sites at [facility]. For routine questions regarding patient records, call [phone] during business hours, M-F 8:00 AM - 5:00 PM Central Time. Record requests for emergency care only can be directed to [phone] at any time.[facility] Encounters Date Type Department Care Team Description 12/14/2023 11:15 AM MARBLE CARVER Clinical Support Department of Rehabilitation Services in [address] [phone] Carlos Enrique Crawford M.D. Buchholtz, Marie F P.T. Strain Muscles And Tendons Rotator Cuff Right Shoulder Initial 12/03/2023 12:30 PM MARBLE CARVER Clinical Support Department of Rehabilitation Services in [address] [phone] Carlos Enrique Crawford M.D. Buchholtz, Marie F P.T. Strain Muscles And Tendons Rotator Cuff Right Shoulder Initial 11/24/2023 2:15 PM MARBLE CARVER Clinical Support Department of Rehabilitation Services in [address] [phone] Carlos Enrique Crawford M.D. Buchholtz, Marie F, P.T. Strain Muscles And Tendons Rotator Cuff Right Shoulder Initial 11/11/2023 8:45 AM MARBLE CARVER Comprehensive Visit Department of Rehabilitation Services in [address] [phone] Mark Moon M.D., Ph.D. Mague Bean P.T. Strain Muscles And Tendons Rotator Cuff Right Shoulder Initial (Primary Dx) from Last 3 Months Allergies No known active allergies Medications Medication [...] Gallstone date unknown Sprain Knee Initial Left Immunizations Name Administration Dates Next Due Influenza, [...] How often do you attend chur or scientologist services? More than 4 times per year 10/01/2022 Do you belong to any clubs o r organizations such as methodist groups, unions, fraternal or athletic groups, or [...] care, and heating? Not very hard 10/01/2022 [facility] [place] of Occupat ional Health - Occupational Stress [...] place to sleep or slept in a senior living (including now)? No 10/01/2022 Nutrition Answer Date [...] CDT Gender Identity Female 11/27/2020 5:13 PM MARBLE CARVER Sexual Orientation Straight 08/27/2021 3: 22 PM [...] 167.6 cm (5' 6) 10/20/2022 8:15 PM MARBLE CARVER Body Mass Index 32.27 09/06/2022 12:29 PM CDT Plan of Treatment Upcoming Encounters Date Type Department Care Team (Late st Contact Info) Description 01/05/2024 12:30 PM MARBLE CARVER Clinical Support Department of Rehabilitation Services in [address] [phone] Carlos Enrique Crawford M.D. [address] [place] [phone] Mague Bean, P.TBhakti Medical Devices Implanted Type Area Minibus Driver Device Identifier Shelf Expiration Date Model / Serial / Lot Clp Hmol Plmr Lg - [id number] Implanted:Qt y: 1 on 08/14/2020 by Nestor Hand M.D. at [facility] Hardware e.g. pins/screws /rods Right: Abdomen TeleGIDEEN [id number] 09/19/2024 [id number] / / [id number] Advance Directives For more information, please contact: [phone] Latest Code Status on File Code Status Date Activated Date Inactivated Comments Full Code 08/14/2020 6:07 PM 08/16/2020 6:43 PM Question Answer Comments Full Code: Discussed
--- OUTSIDE RECORDS SUMMARY | 2023-12-30 08:58 | XMS_ITS | Encounter Summary ---
Author Name Unknown Organization [facility] Address [address] [place] [address] Care Team Providers Care Furniture Dipper Name Role Phone Unavailable Primary Care Provider Unavailabl e Reason for Referral * MRI/CAT/PET Scan (Routine) - Closed Specialty Diagnoses / Procedures Referred By Amyac t Referred To Contact Radiology Diagnoses Carcinoma Renal Cell Right (HCC) Procedures CT Abdomen Pelvis with IV Contrast Slava Velazquez M.D. 200 [place] [address] [facility] Referral ID Status Reason Start Date Expiration Date Visits Re quested Visits Authorized [id number] Closed 10/22/2022 10/22/2023 1 1 Reason for Visit * MRI/CAT/PET Scan (Routine) - Closed Specialty Diagnoses / Procedures Referred By Iman petersen Referred To Contact Radiology Diagnoses Carcinoma Renal Cell Right (HCC) Procedures CT Abdomen Pelvis with IV Contrast Slava Velazquez M.D. 200 [place] [address] [facility] Referral ID Status Reason Start Date Expiration Date Visits Re quested Visits Authorized [id number] Closed 10/22/2022 10/22/2023 1 1 Encounter Details Date Type Department Care Team (Latest Contact Info) Description 05/04/2023 6:55 AM CDT - 05/04/2023 11:59 PM CDT Hospital Encounter Department of Radiology, [facility], in [place], [place] [address] [place] [phone] Slava Velazquez M.D. [address] [place] [address] Carcinoma Renal Cell Right (HCC); Nodules Pulmonary Multiple Discharge Disposition: Home or Self Care Social [...] How often do you attend chur or shinto services? More than 4 times per year 10/01/2022 Do you belong to any clubs o r organizations such as caodaism groups, unions, fraternal or athletic groups, or [...] care, and heating? Not very hard 10/01/2022 [facility] - Occupational Stress Questionnaire Answer Date Recorded [...] place to sleep or slept in a fci (including now)? No 10/01/2022 Nutrition Answer Date [...] CDT Gender Identity Female 11/27/2020 5:13 PM MECHANIC RECOVERY Sexual Orientation Straight 08/27/2021 3: 22 PM [...] st Contact Info) Description 01/05/2024 12:30 PM MECHANIC RECOVERY Clinical Support Department of Rehabilitation Services in [place] [place] [phone] Carlos Enrique [place] M.D. [address] [place] [phone] Mague Bean P.T. documented as of this encounter Procedures Procedure Name Priority Date/Time Associated Diagnosis Comments CT ABDOMEN PELVIS WITH IV CONTRAST RAD - Routine (most inpatients and all outpatients) 05/04/2023 8:43 AM CDT Carcinoma Renal Cell Right (HCC) CT CHEST WITH IV CONTRAST RAD - Routine (most inpatients and all outpatients) 05/04/2023 8:43 AM CDT Carcinoma Renal Cell Right (HCC) Nodules Pulmonary Multiple documented in this encounter Results * CT Chest with IV Contrast (05/04/2023 8:43 AM CDT) Anatomical Region Laterality Modality Chest, Thoracic RST LOS, Tho racic ARZ LOS, Thoracic ARZ LOS, Thoracic FLA LOS N/A Computed Tomography, Compute d Tomography 05/04/2023 8:40 AM CDT Impressions 05/04/2023 9:54 AM CDT No metastatic disease evident in the chest. Tiny solid nodules and groundglass opacity in the right lower lobe that were new on 10/03/2022 have all resolved and should've been infectious/inflammatory in nature. Narrative 05/04/2023 9:54 AM CDT EXAM: CT CHEST WITH IV CONTRAST COMPARISON: Exams dating back to 06/27/2019 FINDINGS: Since 10/03/2022 the tiny sub-3 mm solid nodules in the posterior right lower lobe and adjacent loosely clustered groundglass opacity have all resolved and should've been infectious/inflammatory in nature. No new or enlarging nodules in either lung. Stable solid noncalcified pulmonary nodules dating back to 06/27/2019 should all be benign. Bilateral calcified pulmonary granulomas. Emphysematous changes in the lungs. Minimal atelectasis or scarring in the lung bases. No focal pulmonary infiltrates or pleural effusions. No adenopathy in the chest. Mild aortic and coronary artery calcification. No worrisome osseous lesions. Minimal degenerative changes lower thoracic spine. This examination was performed in conjunction with a CT of the abdomen, which will be reported separately. Procedure Note Marty Almonte M.D. - 05/04/2023 EXAM: CT CHEST WITH IV CONTRAST COMPARISON: Exams dating back to 06/27/2019 FINDINGS: Since 10/03/2022 the tiny sub-3 mm solid nodules in the posterior rightlower lobe and adjacent loosely clustered groundglass opacity have all resolved and should've beeninfectious/inflammatory in nature. No new or enlarging nodules in either lung. Stable solid noncalcified pulmonary nodules dating back to 06/27/2019should all be benign. Bilateral calcified pulmonary granulomas. Emphysematous changes in the lungs. Minimal atelectasis or scarring in thelung bases. No focal pulmonary infiltrates or pleural effusions. No adenopathy in the chest. Mild aortic and coronary arterycalcification. No worrisome osseous lesions. Minimal degenerative changes lower thoracicspine. This examination was performed in conjunction with a CT of the abdomen,which will be reported separately. IMPRESSION: No metastatic disease evident in the chest. Tiny solid nodules andgroundglass opacity in the right lower lobe that were new on 10/03/2022 have all resolved andshould've been infectious/inflammatory in nature. Slava Velazquez M.D. [facility] CT PROCEDURES * CT Abdomen Pelvis with IV Contrast (05/04/2023 8:43 AM CDT) Anatomical Region Laterality Modality Abdomen, Pelvis, Abdominal R ST LOS, Abdominal ARZ LOS, Abdominal FLA LOS N/A Computed Tomograp hy, Computed Tomography 05/04/2023 8:39 AM CDT Impressions 05/04/2023 9:54 AM CDT 1. Status post right nephrectomy without local recurrence or metastatic disease within abdomen pelvis. 2. Stable previously seen right hepatic dome enhancing lesion, likely perfusional. Attention on follow-up imaging. Narrative 05/04/2023 9:54 AM CDT EXAM: ??CT ABDOMEN PELVIS WITH IV CONTRAST COMPARISON: ??Prior CT 09/22/2022 and prior MRI 10/20/2022 FINDINGS: findings: Right nephrectomy without local recurrence. Stable left renal hypodense lesions likely tiny cysts. The bladder is distended and within normal limits. Other findings: Normal size and morphology of liver with stable subcentimeter arterially enhancing lesion without washout right hepatic dome, likely perfusional. Cholelithiasis. Spleen, pancreas, adrenal glands are within normal limits. Layering cholelithiasis. No significant adenopathy within abdomen pelvis. No ascites. Colonic diverticulosis. Normal caliber abdominal aorta with dense scattered atherosclerotic calcification. Mild degenerative changes thoracolumbar vertebrae without destructive lesions. Lung bases clear. Procedure Note Rickie Pagan M.B.B.S., M.D. - 05/04/2023 EXAM: CT ABDOMEN PELVIS WITH IV CONTRAST COMPARISON: Prior CT 09/22/2022 and prior MRI 10/20/2022 FINDINGS: findings: Right nephrectomy without local recurrence. Stableleft renal hypodense lesions likely tiny cysts. The bladder is distended and within normallimits. Other findings: Normal size and morphology of liver with stablesubcentimeter arterially enhancing lesion without washout right hepatic dome, likely perfusional.Cholelithiasis. Spleen, pancreas, adrenal glands are within normal limits. Layeringcholelithiasis. No significant adenopathy within abdomen pelvis. No ascites. Colonic diverticulosis.Normal caliber abdominal aorta with dense scattered atherosclerotic calcification. Mild degenerativechanges thoracolumbar vertebrae without destructive lesions. Lung bases clear. IMPRESSION: 1. Status post right nephrectomy without local recurrence or metastaticdisease within abdomen pelvis. 2. Stable previously seen right hepatic dome enhancing lesion, likelyperfusional. Attention on follow-up imaging. Slava PEREZ CT PROCEDURES documented in this encounter Visit Diagnoses Diagnosis Carcinoma Renal Cell Right (HCC) Nodules Pulmonary Multiple documented in this encounter Administered Medications Inactive Administered Medications - up to 3 most recent administrations Medication Order MAR Action Action Date Dose Rate Site iohexoL 300 mg iodine/mL solution 1-200 mL (OMNIPAQUE) 1-200 mL, intravenous, Once in imaging, contrast, Starting on 05/04/23 at 0746, For 1 dose, Imaging Protocol Orders, Dose per Radiant Medication Guidelines Given 05/04/2023 8:28 AM CDT 140 mL sodium chloride (PF) 0.9 % injection 1-100 mL 1-100 mL, intravenous, Once, On Thu05/04/23 at 0815, For 1 dose, Imaging Protocol Orders Given 05/04/2023 8:28 AM CDT 50 mL documented in this encounter
--- OUTSIDE RECORDS SUMMARY | 2023-12-30 08:58 | XMS_ITS | Encounter Summary ---
Author Name Unknown Organization [facility] Address [address] [place] [address] Care Team Providers Care Cad Cam Programmer Name Role Phone Unavailable Primary Care Provider Unavailabl e Encounter Details Date Type Department Care Team (Latest Contact Info) Description 05/04/2023 6:30 AM CDT - 05/04/2023 6:54 AM CDT Hospital Encounter Department of Laboratory Medicine and Pathology, [facility] in [place], [place] [address] [place] [address] Slava Velazquez M.D. [address] [place] [phone] Carcinoma Renal Cell Right (HCC) Discharge Disposition: [...] week 10/01/2022 How often do you attend [facility] or taoist services? More than 4 times per year 10/01/2022 Do you belong to any clubs o r organizations such as synagogue groups, unions, fraternal or athletic groups, or [...] care, and heating? Not very hard 10/01/2022 [facility] - Occupational [...] CDT Gender Identity Female 11/27/2020 5:13 PM TECHNICAL FELLOW Sexual Orientation Straight 08/27/2021 3: 22 PM [...] st Contact Info) Description 01/05/2024 12:30 PM TECHNICAL FELLOW Clinical Support Department of Rehabilitation Services in [address] [phone] Carlos Enrique [place] M.D. [address] [place] [phone] Mague Bean P.T. documented as of this encounter Procedures Procedure Name Priority Date/Time Associated Diagnosis Comments DIPSTICK, U Routine 05/04/2023 7:19 AM CDT MICROSCOPIC AUTOMATED Routine 05/04/2023 7:19 AM CDT PH, U Routine 05/04/2023 7:19 AM CDT OSMOLALITY, U Routine 05/04/2023 7:19 AM CDT URINALYSIS WITH MICROSCOPIC Routine 05/04/2023 7:19 AM CDT Carcinoma Renal Cell Right (HCC) documented in this encounter Results * Dipstick, Urine (05/04/2023 7:19 AM CDT) Hemoglobin, QL, U Negative Negative 05/04/2023 8:04 AM CDT DTL Leukocyte Esterase, U Negative Negative 05/04/2023 8:04 AM CDT DTL Nitrite, U Negative Negative 05/04/2023 8:04 AM CDT DTL Ketone, U Negative Negative mg/dL 05/04/2023 8:04 AM CDT DTL Glucose, U Negative Negative mg/dL 05/04/2023 8:04 AM CDT DTL Urine 05/04/2023 7:19 AM CDT 05/04/2023 7:19 AM CDT Slava Velazquez M.D. LAB URINE ORDERABLES Performing Organization Address City/[facility]/ZIP Co de Phone Number [facility] [address] [facility] [facility] [address] [facility] 200 [place] [address] * pH, Urine (05/04/2023 7:19 AM CDT) pH, U 6.6 4.5 - 8.0 05/04/2023 8:5 2 AM CDT DT Urine 05/04/2023 7:19 AM CDT 05/04/2023 7:19 AM CDT Narrative Authorizing Provider Result Micky Velazquez M.D. LAB URINE ORDERABLES Performing Organization Address City/[facility]/ZIP Co de Phone Number [facility] [address] [place], [place] [address] [place] [address] 200 [place] [address] * Osmolality, Urine (05/04/2023 7:19 AM CDT) Osmolality, U 369 150 - 1150 mOsm/kg 05/04/2023 8:52 AM CDT DTL Urine 05/04/2023 7:19 AM CDT 05/04/2023 7:19 AM CDT Narrative Authorizing Provider Result Micky Velazquez M.D. LAB URINE ORDERABLES Performing Organization Address City/[facility]/ZIP Co de Phone Number [facility] 200 [place] [address], [facility] 200 [place] [address] * Microscopic Automated (05/04/2023 7:19 AM CDT) Microscopy Normal 05/04/2023 8:0 4 AM CDT DTL Urine 05/04/2023 7:19 AM CDT 05/04/2023 7:19 AM CDT Narrative Authorizing Provider Result Micky Velazquez M.D. LAB URINE ORDERABLES Performing Organization Address [facility] Co de Phone Number [facility] [address] [place] [address], [facility] 200 [place] [address] * Urinalysis with Microscopic: Urine, Midstream (05/04/2023 7:19 AM CDT) Source Urine, Urine, Midstream 05/04/2023 7:19 AM CDT DTL Color, U Yellow 05/04/2023 7:19 AM CDT DTL Clarity, U Clear 05/04/2023 7:19 AM CDT DTL Protein, U 6 <26 mg/dL 05/04/2023 8:00 AM CDT DTL Protein/Osmol ality 0.16 <0.42 ratio 05/04/2023 8:52 AM CDT DTL Predicted 24 HR Protein, U 129 <229 mg/24 h 05/04/2023 8:52 AM CDT DTL Predicted Range 32-520 mg/24 h 05/04/2023 8:52 AM CDT DTL Urine (Urine, Midstream) 05/04/2023 7:19 AM CDT 05/04/2023 7:19 AM CDT Narrative Authorizing Provider Result Micky Velazquez M.D. LAB URINE ORDERABLES Performing Organization Address City/[facility]/ZIP Co de Phone Number [facility] [address] [place] [address], [facility] DTL [facility] [address] [place] [address] documented in this encounter Visit Diagnoses Diagnosis Carcinoma Renal Cell Right (HCC) documented in this encounter
--- OUTSIDE RECORDS SUMMARY | 2023-12-30 08:59 | XMS_ITS | Encounter Summary ---
Author Name Unknown Organization [facility] Address [address] [place] [address] Care Team Providers Care Bat Carrier Name Role Phone Unavailable Primary Care Provider Unavailabl e Encounter Details Date Type Department Care Team (Late st Contact Info) Description 01/26/2023 [facility] [address] [place] [phone] Rosa Yo M.D. [address] [place] [phone] Social History Tobacco Use Types Packs/Day Years [...] How often do you attend chur or sabianist services? More than 4 times per year 10/01/2022 Do you belong to any clubs o r organizations such as taoism groups, unions, fraternal or athletic groups, or [...] care, and heating? Not very hard 10/01/2022 [facility] - Occupational Stress [...] place to sleep or slept in a skilled nursing (including now)? No 10/01/2022 Nutrition Answer Date [...] CDT Gender Identity Female 11/27/2020 5:13 PM MOTHER SUPERIOR Sexual Orientation Straight 08/27/2021 3: 22 PM CDT documented as of this encounter Plan of Treatment Upcoming Encounters Date Type Department Care Team (Late st Contact Info) Description 01/05/2024 12:30 PM MOTHER SUPERIOR Clinical Support Department of Rehabilitation Services in [address] [phone] Carlos Enrique [place] M.D. [facility] [place] [phone] Mague Bean, P.T. documented as of this encounter Visit Diagnoses Not on filedocumented in this encounter
--- OUTSIDE RECORDS SUMMARY | 2023-12-30 08:59 | XMS_ITS | Encounter Summary ---
Author Name Unknown Organization [facility] Address [address] [place] [address] Care Team Providers Care Coordinate Measuring Equipment Operator Name Role Phone Unavailable Primary Care Provider Unavailabl e Reason for Visit * Reason Onset Date Comments Previsit Intake 05/01/2023 Encounter Details Date Type Department Care Team (Latest Contact Info) Description 05/01/2023 9:15 AM CDT Clinical Communication Virtual Review in [place], [place] [address] [place] [address] Previsit Intake Social History Tobacco Use Types Packs/Day Years [...] How often do you attend chur or taoism services? More than 4 times per year 10/01/2022 Do you belong to any clubs o r organizations such as nondenominational groups, unions, fraternal or athletic groups, or [...] care, and heating? Not very hard 10/01/2022 [facility]at ional [facility] - Occupational Stress [...] CDT Gender Identity Female 11/27/2020 5:13 PM MECHANICAL ESTIMATOR Sexual Orientation Straight 08/27/2021 3: 22 PM CDT documented as of this encounter Plan of Treatment Upcoming Encounters Date Type Department Care Team (Late st Contact Info) Description 01/05/2024 12:30 PM MECHANICAL ESTIMATOR Clinical Support Department of Rehabilitation Services in [address] [phone] Carlos Enrique [place] M.D. [address] [place] [phone] Mague Bean P.TBhakti documented as of this encounter Visit Diagnoses Not on filedocumented in this encounter
--- OUTSIDE RECORDS SUMMARY | 2023-12-30 08:59 | XMS_ITS | Encounter Summary ---
Author Name Unknown Organization [facility] Address [address] [place] [address] Care Team Providers Care Tripe Scraper Name Role Phone Unavailable Primary Care Provider Unavailabl e Encounter Details Date Type Department Care Team (Late st Contact Info) Description 01/19/2023 [facility] [address] [place] [phone] Rosa Yo M.D. [address] [place] [phone] Gout (Primary Dx) Social History Tobacco Use Types [...] How often do you attend chur or adventism services? More than 4 times per year 10/01/2022 Do you belong to any clubs o r organizations such as restorationist groups, unions, fraternal or athletic groups, or [...] care, and heating? Not very hard 10/01/2022 [facility] of Occupat ional Health - Occupational [...] to sleep or slept in a senior care (including now)? No 10/01/2022 Nutrition Answer Date [...] CDT Gender Identity Female 11/27/2020 5:13 PM MANAGER CHANGE Sexual Orientation Straight 08/27/2021 3: 22 PM CDT documented as of this encounter Plan of Treatment Upcoming Encounters Date Type Department Care Team (Late st Contact Info) Description 01/05/2024 12:30 PM MANAGER CHANGE Clinical Support Department of Rehabilitation Services in [address] [phone] Carlos Enrique [place] M.D. [facility] [place] [place] [phone] Mague Bean, P.T. documented as of this encounter Visit Diagnoses Diagnosis Gout- Primary documented in this encounter
--- OUTSIDE RECORDS SUMMARY | 2023-12-30 08:59 | XMS_ITS | Encounter Summary ---
Author Name Unknown Organization [facility] Address [address] [place] [address] Care Team Providers Care Spindle Sander Name Role Phone Unavailable Primary Care Provider Unavailabl e Reason for Referral * MRI/CAT/PET Scan (Routine) - Authorized Specialty Diagnoses / Procedures Referred By Contac t Referred To Contact Radiology Diagnoses Carcinoma Renal Cell Right (HCC) Procedures CT Abdomen Pelvis with IV Contrast Chris Thomas M.D. [address] [place] [address] [facility] Referral ID Status Reason Start Date Expiration Date V isits Requested Visits Authorized [id number] Authorized 05/04/2023 05/03/2024 1 1 * MRI/CAT/PET Scan (Routine) - Authorized Specialty Diagnoses / Procedures Referred By Contac t Referred To Contact Radiology Diagnoses Carcinoma Renal Cell Right (HCC) Procedures CT Chest with IV Contrast Chris Thomas M.D. [address] [place] [address] [facility] Referral ID Status Reason Start Date Expiration Date V isits Requested Visits Authorized [id number] Authorized 05/04/2023 05/03/2024 1 1 * Outpatient (Routine) - Authorized Specialty Diagnoses / Procedures Referred By Contac t Referred To Contact Urology Diagnoses Carcinoma Renal Cell Right (HCC) Chris Thomas M.D. [address] [place] [phone] [facility] Referral ID Status Reason Start Date Expiration Date V isits Requested Visits Authorized [id number] Authorized 05/04/2023 05/03/2026 1 1 Reason for Visit * Outpatient (Routine) - Closed Specialty Diagnoses / Procedures Referred By Iman petersen Referred To Contact Urology Diagnoses Carcinoma Renal Cell Right (HCC) Slava Velazquez M.D. [address] [place] [phone] [facility] Referral ID Status Reason Start Date Expiration Date Visits Re quested Visits Authorized [id number] Closed 10/22/2022 10/21/2025 1 1 Encounter Details Date Type Department Care Team (Late st Contact Info) Description 05/04/2023 1:00 PM CDT Office Visit Department of Urology in [place], [place] [address] [place] [phone] Nestor Hand M.D. [address] [place] [phone] Carcinoma Renal Cell Right (HCC) (Primary Dx) Social History Tobacco Use Types [...] How often do you attend chur or jain services? More than 4 times per year 10/01/2022 Do you belong to any clubs o r organizations such as buddhism groups, unions, fraternal or athletic groups, or [...] care, and heating? Not very hard 10/01/2022 [facility] Occupat ional Health - [...] place to sleep or slept in a assisted (including now)? No 10/01/2022 Nutrition Answer Date [...] CDT Gender Identity Female 11/27/2020 5:13 PM HOUSECALLS NURSE Sexual Orientation Straight 08/27/2021 3: 22 PM CDT documented as of this encounter Consult Notes * Chris Thomas M.D. - 05/04/2023 1:00 PM CDT FOLLOW-UP NOTE CHIEF COMPLAINT: Kidney cancer surveillance SUBJECTIVE INTERVAL HISTORY: Mrs. 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 Her last surveillance evaluation was on 10/06/2022. Please refer to that note for additional details. She was evaluated today with a CT scan of the abdomen and pelvis was was negative for any carolin or metastatic disease. Her CT chest showed resolution of previous subcentimeter nodules. She otherwise denies any major intercurrent changes in her health status. She was recently diagnosed with gout which is being treated medically. SYSTEMS REVIEW All other systems reviewed and are negative. OBJECTIVE PHYSICAL EXAMINATION Constitutional: She is oriented to person, place, and time. She appears well- developed and well-nourished. No distress. Pulmonary/Chest: Effort normal. Neurological: She is alert and oriented to person, place, and time. Psychiatric: She has a normal mood and affect. LABS Creatinine 1.45 ASSESSMENT / PLAN #1 Carcinoma Renal Cell Right (HCC) It was a pleasure to meet with Mrs. Cisneros this afternoon. Her surveillance evaluation is negative. PLAN 1. Patient will follow up in Urology in 1 year with a repeat CT of the abdomen pelvis with and without contrast, chest x-ray, BMP, and office visit. Signed: Chris Thomas M.D. documented in this encounter Plan of Treatment Upcoming Encounters Date Type Department Care Team (Late st Contact Info) Description 01/05/2024 12:30 PM HOUSECALLS NURSE Clinical Support Department of Rehabilitation Services in [address] [phone] Carlos Enrique [place] M.D. [address] [place] [phone] Mague Bean P.T. Scheduled Orders Name Type Priority Associated Diagnoses Order Schedule CT Chest with IV Contrast Imaging RAD - Routine (most inpatients and all outpatients) Carcinoma Renal Cell Right (HCC) Expected: 05/04/2024, Expires: 08/04/2024 CT Abdomen Pelvis with IV Contrast Imaging RAD - Routine (most inpatients and all outpatients) Carcinoma Renal Cell Right (HCC) Expected: 05/04/2024, Expires: 08/04/2024 Comprehensive Metabolic Panel Lab Routine Carcinoma Renal Cell Right (HCC) Expected: 05/04/2024, Expires: 08/04/2024 Urinalysis with Microscopic: Urine, Midstream Lab Routine Carcinoma Renal Cell Right (HCC) Expected: 05/04/2024, Expires: 08/04/2024 Scheduled Referrals Name Type Priority Associated Diagnoses Orde r Schedule Urology office visit (clinic) Outpatient Referral Routine Carcinoma Renal Cell Right (HCC) Expected: 05/04/2024, Expires: 08/04/2024 documented as of this encounter Visit Diagnoses Diagnosis Carcinoma Renal Cell Right (HCC)- Primary documented in this encounter
--- OUTSIDE RECORDS SUMMARY | 2023-12-30 08:59 | XMS_ITS | Encounter Summary ---
Author Name Unknown Organization [facility] Address [address] [place] [id number] Care Team Providers Care Workers Compensation Examiner Name Role Phone Unavailable Primary Care Provider Unavailabl e Encounter Details Date Type Department Care Team (Late st Contact Info) Description 01/20/2023 Orders Only Division of Rheumatology in [place], [place] [address] [place] [phone] Melina Centeno M.B.B.S. [address] [place] [phone] Gout (Primary Dx) Social History Tobacco Use [...] How often do you attend chur or gnosticism services? More than 4 times per year 10/01/2022 Do you belong to any clubs o r organizations such as zoroastrianism groups, unions, fraternal or athletic groups, or [...] care, and heating? Not very hard 10/01/2022 [facility] - Occupational [...] place to sleep or slept in a [place] [facility] [place] (including now)? No 10/01/2022 Nutrition Answer Date [...] CDT Gender Identity Female 11/27/2020 5:13 PM HUNTER Sexual Orientation Straight 08/27/2021 3: 22 PM CDT documented as of this encounter Plan of Treatment Upcoming Encounters Date Type Department Care Team (Late st Contact Info) Description 01/05/2024 12:30 PM HUNTER Clinical Support Department of Rehabilitation Services in [address] [phone] Carlos Enrique Crawford M.D. [facility] [place] [phone] Mague eBan, P.T. documented as of this encounter Visit Diagnoses Diagnosis Gout- Primary documented in this encounter
--- OUTSIDE RECORDS SUMMARY | 2023-12-30 08:59 | XMS_ITS | Clinical Summary ---
Author Name Unknown Organization [facility] Address [place], [place] [address] Care Team Providers Care Insurance Adjuster Name Role Phone Pcp, No Primary Care Provider Unavailabl e Allergies No known active allergies Medications Medication Sig Dispensed Refills Start Date End Date Status atorvastatin (LIPITOR) 20 mg tablet Take 1 tablet by mouth once daily. At bedtime 0 10/13/2016 Active clobetasol cream 0.05% (TEMOVATE) 0.05 % cream Apply topically to affected area(s) 2 times daily. External bedtime 0 10/13/2016 Active hydroCHLOROthiazide (HCTZ) 25 mg tablet Take 1 tablet by mouth once daily. 0 10/13/2016 Active calcium carbonate (OS-NAM 500) 500 mg calcium (1,250 mg) tablet Take 1 tablet by mouth 3 times daily with meals. 0 10/13/2016 Active cholecalciferol, Vitamin D3, 2,000 unit tablet Take 2,000 units by mouth once daily. 0 Active levothyroxine (SYNTHROID) 125 mcg tablet Take 1 Tablet by mouth once daily. 0 03/03/2023 Active Immunizations Name Administration Dates Next Due Influenza, High-dose Inactivated 10/13/2016 Social History Tobacco Use Types Packs/Day Years Used Date Smoking Tobacco: Former Tobacco Cessation:Counseling Given: Yes Alcohol Use Standard Drinks/Week Comments No 0 (1 standard drink = 0.6 oz pur e alcohol) Sex and Gender Information Value Date Recorded Sex Assigned at Not on file Gender Identity Not on file Sexual Orientation Not on file Obstetrics History Last Filed Vital Signs Vital Sign Reading Time Taken Comments Blood Pressure 133/76 03/11/2023 12:59 PM CDT to wer Pulse 55 03/11/2023 12:59 PM CDT Temperature 36.7 ??C (98.1 ??F) 10/13/2016 3:02 PM CS T Respiratory Rate - - Oxygen Saturation 100% 03/11/2023 12:59 PM CDT Inhaled Oxygen Concentration - - Weight 93 kg (205 lb) 03/11/2023 12:59 PM CDT Height 168.5 cm (5' 6.34) 10/13/2016 3:02 PM CS T Body Mass Index 32.75 10/13/2016 3:02 PM 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 Plan of Treatment Health Maintenance Due Date Last Done Comments Tdap 1961 Depression screening for age 12+ 1962 Hepatitis C screening for age 18-79 1968 Tetanus booster 1970 Colonoscopy through age 75 1995 Lipids for age 45-75 1995 Mammogram for age 45-75 1995 Zoster (shingles) series for age 50+ (1 of 2) 2000 DEXA/DXA scan for age 65+ 2015 Medicare Wellness for age 65+ 2015 Pneumococcal series for age 65+ (1 of 1 - PCV) 2015 BMI (ht and wt on same day) for age 18+ 10/13/2017 1 12/13/2015 COVID-19 vaccine series ( season) 2023 10/01/2021, 09/03/2021 Influenza for age 65+ 07/24/2023 10/13/2016 Care Teams Insurance Adjuster Relationship Specialty Start Date End Date Pcp, No . PCP - General 10/13/16
--- NOTE | 2023-12-30 09:45 | CRLHL7_ITS ---
For Patients: As a result of the Century Cures Act, medical imaging exams and procedure reports are released immediately into your electronic medical record. You may view this report before your referring provider. If you have questions, please contact your health care provider. DIGITAL DIAGNOSTIC BILATERAL MAMMOGRAM USING TOMOSYNTHESIS AND COMPUTER-AIDED DETECTION RIGHT BREAST ULTRASOUND CLINICAL HISTORY: RIGHT breast lump. COMPARISON: 02/12/2023, 08/31/2020, 06/29/2019, 12/29/2018. TECHNIQUE: Digital BILATERAL mammogram in four projections. Tomosynthesis and CAD utilized. Real-time ultrasound imaging of RIGHT breast with imaging documentation. BREAST COMPOSITION: There are areas of scattered fibroglandular density. FINDINGS: 3D CC/MLO BILATERAL mammogram images submitted. No suspicious masses or architectural distortion. No suspicious calcifications. Benign stable density LEFT retroareolar plane. Targeted RIGHT breast ultrasound performed in the area of palpable concern. At 12 o`clock 6 cm from the nipple there is mild subcutaneous bruising. No underlying mass. No fluid collection. IMPRESSION: No suspicious findings. No evidence of malignancy. RECOMMENDATIONS: Annual BILATERAL screening mammography. Results and recommendations were discussed with the patient at the time of the exam. A lay language report of this examination will be provided to the patient. Dictated by Torrey Kendrick MD @ 12/30/2023 10:16:53 AM /Dictated by: Torrey Kendrick MD @ 12/30/2023 10:16:00 AM (Electronically Signed)
--- NOTE | 2023-12-30 10:15 | CRLHL7_ITS ---
For Patients: As a result of the Cures Act, medical imaging exams and procedure reports are released immediately into your electronic medical record. You may view this report before your referring provider. If you have questions, please contact your health care provider. PLEASE SEE DIGITAL DIAGNOSTIC BILATERAL MAMMOGRAM PERFORMED SAME DAY CRL:yelena kirk/Dictated by: Torrey Kendrick MD @ 12/30/2023 10:46:00 AM (Electronically Signed)
== END 2023-12-30 08:56 | disposition home or self-care (01) ==
LOC: MAMMO 08:56
PROVIDERS: PCP Internal Medicine; Visit Provider Internal Medicine
DX: N63.10 Unspecified lump in the right breast, unspecified quadrant (principal); N64.59 Other signs and symptoms in breast; N63.15 Unspecified lump in the right breast, overlapping quadrants
CPT/HCPCS: 76642; 77066; G0279

== ENCOUNTER 2024-06-21 09:45 | Outpatient (RCR) | payer MEDICARE, BC, SELFPAY ==
--- NOTE | 2024-02-10 13:56 | PT.OPEX ---
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 Yo Subjective Subjective Patient is a 71 year old female who presents to physical therapy with signs and symptoms consistent with rib pain. She states that about a year and a half ago she was helping a friend recover from surgery and lifting him up. She states that she had a rib pop out and in the last few months, she has had 3 ribs pop out. She states that she does see her chiropractor who told her she needed some strengthening. She states she sees the chiropractor as needed now. She reports a dull ache in her upper back. She states that it is two ribs on the right and one on the left that pop out. She states that she does ride her exercise bike 3-4 times per week. She states that she had a cold for about two weeks and did a lot of coughing which irritated her ribs. She reports that she runs out of endurance and gets breathless very easy. She states that the breathlessness has been going on over a year and has slowly gotten worse. She would get some sternum pain at times. Aggravating factors include: coughing, moving arms, combing hair. Alleviating factors include: Getting in the right position up right with pillow behind her. Significant past medical history includes shoulder tendonitis, vertigo, cancer ( anal and kidney), high blood pressure (controlled), gout, weight gain 10# in 9-10 months , arthritis, right hip pain. Patient would like to get stronger through physical therapy sessions. 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 lifting Objective Other/Pertinent Objective SPINAL ALIGNMENT/POSTURE Mild thoracic kyphosis CERVICAL ROM Flexion: 100% Extension: 75% Right Rotation: 75% Left Rotation: 75% Right side bend: 75% Left Side bend: 75% Thoracic Rotation: Right: 75% Left: 50% with pain SHOULDER AROM Grossly tested WNL NECK/SHOULDER MMT: Shoulder shrug: R 4/5 L 4/5 Shoulder flexion: R 4-/5 L 4-/ 5 Shoulder abduction: R 4-/5 L 4 -/5 Shoulder External Rotation: R 4-/5 L 4-/5 Shoulder Internal Rotation: R 4-/5 L 4-/5 Elbow Flexion: R 4/5 L 4/5 Elbow Ext: R 4/5 L 4/5 SPECIAL TEST -Spurlings Test: negative B -Bakody Sign: negative B -Cervical distraction test: negative B JOINT MOBILITY/PALPATION Severe tightness and tenderness with palpation of bilateral rhomboids and ES TX: Access Code: [email or web address] URL: [email or web address] Date: 02/10/2024 Prepared by: Laurita Montanez Exercises - Shoulder External Rotation and Scapular Retraction with Resistance - 1 x daily - 7 x weekly - 3 sets - 10 reps - Standing Shoulder Row with Anchored Resistance - 1 x daily - 7 x weekly - 3 sets - 10 reps Functional Test Performed & Score 7/50 0-4 = no disability 5-14 = mild disability 15-24 = moderate disability 25-34 = severe disability >34 = complete disability Assessment Assessment/Impression Pt is a 71 year old female who presents with concerns of rib pain. Patient also has notable objective findings including limited ROM, tenderness to palpation, and decreased strength which are also likely contributing to the problem. Patient is a good candidate for skilled therapy to target deficits described above. Skilled PT intervention is necessary for use of therapeutic exercise manual therapy, neuromuscular re- education, gait training, and therapeutic activity. Functional impairments include difficulty with: sleeping, exercising and ADLS. See appropriate sections of PT eval for complete list of goals and POC. D/C plan and criteria is for pt to achieve the goals as listed below or until max rehab potential is met. Pt was agreeable with plan of care and goals established. Primary Functional Limitations exercising ADLs sleeping Plan of Care Rehabilitation Potential Good Physical Therapy Goals Within 10-12 weeks: 1.Pt will demonstrate independence in performance of home exercise program with the use of video and/or handouts in order to optimize functional mobility and reduce risk for re-injury. 2.Pt will demonstrate consistent HEP compliance to ensure progress in reaching established goals during course of care. 3.Patient will be able to sit at a computer for up to one hour without pain. 4.Patient will report pain levels <2/10 with all activities in order to improve functional mobility at home, work and during functional leisure activities. 5.Patient is able to sleep without waking more than one time due to pain in a 6-8 hour time frame. 6.Patient will be able to bend and lift household items from the floor to shoulder height to perform ADLs without pain. 7.Pt will exhibit 5 pt improvement in Neck Disability Index measure to demonstrate functional improvement and progress towards goals Coordination/Communication With Referral Source Treatment Plan/Direct Interventions Joint Mobilization,Manual Therapy,Therapeutic Activities ,Therapeutic Exercises Patient Will Be Discharged From Therapy Independently Progressing Evaluation Billing Untimed Code Treatment Minutes 30 Complexity Low Certification Information Physician Comment/Change : Physician NPI Number #
--- NOTE | 2024-05-04 11:39 | PT.OPDNX ---
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 Yo Subjective Subjective Patient is a 71 year old female who presents to physical therapy with signs and symptoms consistent with rib pain. She states that she is feeling better. She states that she went back to the chiropractor on Thursday and got adjusted. Pain Comments Today: 1-2/10 on a 0-10 pain scale with 10 = extreme pain At its worst: 8-9/10 At its best: 0/10 Objective Other/Pertinent Objective SPINAL ALIGNMENT/POSTURE Mild thoracic kyphosis CERVICAL ROM Flexion: 100% Extension: 75% Right Rotation: 75% Left Rotation: 75% Right side bend: 75% Left Side bend: 75% Thoracic Rotation: Right: 75% Left: 50% with pain SHOULDER AROM Grossly tested WNL NECK/SHOULDER MMT: Shoulder shrug: R 4/5 L 4/5 Shoulder flexion: R 4-/5 L 4-/ 5 Shoulder abduction: R 4-/5 L 4 -/5 Shoulder External Rotation: R 4-/5 L 4-/5 Shoulder Internal Rotation: R 4-/5 L 4-/5 Elbow Flexion: R 4/5 L 4/5 Elbow Ext: R 4/5 L 4/5 SPECIAL TEST -Spurlings Test: negative B -Bakody Sign: negative B -Cervical distraction test: negative B JOINT MOBILITY/PALPATION Severe tightness and tenderness with palpation of bilateral rhomboids and ES Functional Test Performed & Score 7/50 0-4 = no disability 5-14 = mild disability 15-24 = moderate disability 25-34 = severe disability >34 = complete disability Patient Instructed in Risks/Benefits Yes Therapeutic Exercise Therapeutic Exercise Minutes (minutes) 15 Therapeutic Exercise: To Restore B arm YTB row 3 x10 Functional Status ER pull aparts 3 x10 YTB Lat pulldowns 3 x 10 YTB Not today: One arm tricep pulldowns YTB 3 x10 Scaption lifts 3# Rows YTB x 10 Demonstrated pelvic tilt and tilt with march Sent home YTB and RTB Access Code : [email or web address] URL: [email or web address] Date: 02/10/2024 Prepared by: Laurita Montanez Exercises - Shoulder External Rotation and Scapular Retraction with Resistance - 1 x daily - 7 x weekly - 3 sets - 10 reps - Standing Shoulder Row with Anchored Resistance - 1 x daily - 7 x weekly - 3 sets - 10 reps Access Code: [email or web address] URL: [email or web address] Date: 03/03/2024 Prepared by: Laurita Montanez Exercises - Sidelying Thoracic Rotation with Open Book - 1 x daily - 7 x weekly - 3 sets - 10 reps Access Code: [email or web address] URL: [email or web address]/ Date: 04/20/2024 Prepared by: Laurita Lisseth Exercises - Shoulder External Rotation and Scapular Retraction with Resistance - 1 x daily - 7 x weekly - 3 sets - 10 reps - Standing Shoulder Row with Anchored Resistance - 1 x daily - 7 x weekly - 3 sets - 10 reps - Shoulder extension with resistance - Neutral - 1 x daily - 7 x weekly - 3 sets - 10 reps - Standing Tricep Extensions with Resistance - 1 x daily - 7 x weekly - 3 sets - 10 reps - Standing Shoulder Flexion with Resistance - 1 x daily - 7 x weekly - 3 sets - 10 reps - Standing Shoulder Scaption - 1 x daily - 7 x weekly - 3 sets - 10 reps - Shoulder Abduction with Dumbbells - Palms Down - 1 x daily - 7 x weekly - 3 sets - 10 reps Manual Therapy Techniques Manual Therapy Minutes (minutes) 15 Manual Therapy Techniques DTM to right ES, latissimus dorsi, rhomboid and surrounding rib musculature with severe tightness and tenderness with palpation Treatment Minutes Timed Code Treatment Minutes 30 Total Treatment Time 30 Billing Units Manual Therapy Units 1 Therapeutic Exercise Units 1 Assessment/Impression Assessment/Impression Pt is a 71 year old female who presents with concerns of rib pain. Gardenia had a severe flare up a week ago with her rib pain. She returns to PT today with reports of feeling better than last week. Overall, she has noticed significant improvement with reduction in rib pain since starting physical therapy. She continues to have some on and off rib pain dependent on her activity level. She has been progressing with her strengthening program as tolerated. Skilled PT intervention is necessary for use of therapeutic exercise manual therapy, neuromuscular re-education, and therapeutic activity. D/C plan and criteria is for pt to achieve the goals as listed below or until max rehab potential is met. One additional appointment scheduled. Plan of Care Physical Therapy Goals Within 10-12 weeks: 1.Pt will demonstrate independence in performance of home exercise program with the use of video and/or handouts in order to optimize functional mobility and reduce risk for re-injury. MET 2.Pt will demonstrate consistent HEP compliance to ensure progress in reaching established goals during course of care. 3.Patient will be able to sit at a computer for up to one hour without pain. 4.Patient will report pain levels <2/10 with all activities in order to improve functional mobility at home, work and during functional leisure activities. 5.Patient is able to sleep without waking more than one time due to pain in a 6-8 hour time frame. 6.Patient will be able to bend and lift household items from the floor to shoulder height to perform ADLs without pain. 7.Pt will exhibit 5 pt improvement in Neck Disability Index measure to demonstrate functional improvement and progress towards goals Daily Plan of Care Continue per POC Recertification Information Initial Certification Date 02/10/24 Recertification Start Date 05/10/24 Recertification Due Date 05/09/24 Reasons to Continue Skilled Therapy Gardenia had a severe flare up a week ago with her rib pain. She returns to PT today with reports of feeling better than last week, but still moderately sore. Overall, she has noticed significant improvement with reduction in rib pain since starting physical therapy. She continues to have some on and off rib pain dependent on her activity level. She has been progressing with her strengthening program as tolerated. She would continue to benefit from PT to focus on her core strength. Rehabilitation Potential Good Continued Plan of Care and Interventions manual therapy Ther exercise Ther activities Provider Signature Shows Agreement With POC & Medical Necessity Physician Comment/Change Comment or Changes Physician NPI Number #
== END 2024-06-27 09:18 | disposition home or self-care (01) ==
PROVIDERS: PCP Internal Medicine; Visit Provider Internal Medicine
DX: R07.81 Pleurodynia (principal); Z51.89 Encounter for other specified aftercare
CPT/HCPCS: 97110; 97140; 97161

== ENCOUNTER 2024-11-02 09:17 | Outpatient (CLI) | payer MEDICARE, BC, SELFPAY | END 2024-11-02 09:18 | disposition home or self-care (01) | LOC: NFLDREF 11-03 12:53 | PROVIDERS: PCP Internal Medicine; Referring Provider Internal Medicine; Visit Provider Internal Medicine | DX: E78.5 Hyperlipidemia, unspecified (principal); M81.0 Age-related osteoporosis without current pathological fracture; E03.9 Hypothyroidism, unspecified; M10.9 Gout, unspecified; M85.80 Other specified disorders of bone density and structure, unspecified site; I10 Essential (primary) hypertension; R39.89 Other symptoms and signs involving the genitourinary system; Z90.5 Acquired absence of kidney | CPT/HCPCS: 80048; 80061; 82306; 84443; 84550; 87086 ==

== ENCOUNTER 2025-01-04 13:06 | Outpatient (CLI) | payer MEDICARE, BC, SELFPAY | END 2025-01-04 13:07 | disposition home or self-care (01) | LOC: MAMMO 13:07 | PROVIDERS: PCP Internal Medicine; Visit Provider Internal Medicine | DX: Z12.31 Encounter for screening mammogram for malignant neoplasm of breast (principal) | CPT/HCPCS: 77063; 77067 ==

== ENCOUNTER 2025-01-04 13:13 | Outpatient (CLI) | payer MEDICARE, BC, SELFPAY | END 2025-01-04 13:14 | disposition home or self-care (01) | LOC: US 13:13 | PROVIDERS: PCP Internal Medicine; Visit Provider Physician Assistant | DX: N95.0 Postmenopausal bleeding (principal); R93.89 Abnormal findings on diagnostic imaging of other specified body structures | CPT/HCPCS: 76830; 76856 ==